=== PATIENT | female | born 1955 | race African-American/Black ===

== ENCOUNTER 2023-02-26 12:30 | Inpatient (IN) | payer MEDICARE, OTHER ==
[~2023-02-26] VITALS: Ht 160 cm; Wt 60.8 kg
[2023-02-26] MEDS ORDERED: ASPIRIN 81MG TABLET PO ONE (13:45)
[2023-02-26 14:16] LABS: CHLORIDE 105 mEq/L (98-107); INDEX HEMOLYSI 1 (1-3); INDEX ICTERIC 1 (1-4); INDEX LIPEMIC 1 (1-3); POTASSIUM 4.5 mEq/L (3.5-5.1); SODIUM 131 mEq/L (136-145)
[2023-02-26 14:22] LABS: BASOPHILS % 0.3 % (0.0-2.0); EOSINOPHILS % 0.2 % (0.0-5.0); HEMATOCRIT. 25.1 % (36.0-48.0); HEMOGLOBIN. 8.2 g/dL (12.0-16.0); LYMPHOCYTES % 27.5 % (20.0-50.0); MEAN CORPUSCULAR HEMOGLOBIN 26.3 pg (28.0-32.0); MEAN CORPUSCULAR HGB CONC 32.6 g/dL (31.0-37.0); MEAN CORPUSCULAR VOLUME 80.9 fL (81.0-99.0); MEAN PLATELET VOLUME 8.1 fl (7.4-10.4); MONOCYTES % 7.2 % (2.0-8.0); NEUTROPHILS % 64.8 % (40.0-76.0); PLATELET 214 x1000/uL (130-400); RED CELL DISTRIBUTION WIDTH 17.3 % (11.6-14.6); WHITE BLOOD COUNT 5.2 x1000/uL (4.5-11.0)
[2023-02-26 14:27] LABS: D-DIMER 7.26 mg/L FEU (<0.50); PROTHROMBIN TIME 11.2 sec (9.6-11.0)
[2023-02-26 14:28] LABS: ALANINE AMINOTRANSFERASE 13 IU/L (13-61); ALBUMIN 2.2 g/dL (3.4-5.0); ASPARTATE AMINOTRANSFERASE 29 IU/L (15-37); BILIRUBIN TOTAL 0.3 mg/dL (0.1-1.0); CALCIUM 8.8 mg/dL (8.5-10.1); CARBON DIOXIDE 23 mEq/L (21-32); CREATININE 2.2 mg/dL (0.6-1.3); NT PRO B-TYPE NATRIURETIC PEP 298 pg/mL (5-125); PROTEIN TOTAL 10.5 g/dL (6.0-8.3); TROPONIN I HIGH SENSITIVITY 7 ng/L (<54); UREA NITROGEN BLOOD 28 mg/dL (7-21)
[2023-02-26 15:19] LABS: GLUCOSE 100 mg/dL (70-105)
[2023-02-26 16:04] LABS: TROPONIN I HIGH SENSITIVITY 7 ng/L (<54)
[2023-02-26 22:40] LABS: CLARITY URINE CLEAR (CLEAR); COLOR URINE YELLOW (YELLOW); GLUCOSE URINE NEGATIVE (NEGATIVE); KETONES URINE NEGATIVE (NEGATIVE); LEUKOCYTE ESTERASE URINE NEGATIVE (NEGATIVE); NITRITE URINE NEGATIVE (NEGATIVE); OCCULT BLOOD URINE TRACE (NEGATIVE); PH URINE 5.5 (4.5-8.0); PROTEIN URINE 1+ (NEGATIVE); SPECIFIC GRAVITY URINE 1.019 (1.005-1.030); UROBILINOGEN URINE 0.2 E.U./dL (0.2-1.0)
[2023-02-26 22:43] LABS: YEAST URINE NONE SEEN
[2023-02-26] MEDS ORDERED: ALBUTEROL (0.083%) 2.5MG/3ML NEB HHN STA (22:50)
[2023-02-26] MEDS ORDERED: IPRATROPIUM BROMIDE (0.02%) 0.5MG/2.5ML NEB HHN STA (22:50)
[2023-02-26 22:57] LABS: BACTERIA URINE 1+; RBC URINE 0-2 /hpf (0-2); SQUAMOUS EPITHELIAL CELL URINE FEW /lpf (RARE/1+); WBC URINE 0-2 /hpf (0-2)
[2023-02-26 23:18] VITALS: PULSE 80; RESP 16
[2023-02-27] VITALS (7 sets, daily range): BP systolic 127–150; BP diastolic 73–81; PULSE 94–117; RESP 18–24; TEMP 96.8–97.9; O2SAT 98
[2023-02-27] MEDS ORDERED: ONDANSETRON 4MG ODT PO PRN (05:30)
[2023-02-27] MEDS ORDERED: HYDROCODONE/ACETAMINOPHEN 5/325MG TABLET PO PRN (05:30)
[2023-02-27] MEDS: PANTOPRAZOLE 40MG DR TABLET PO SCH (06:47)
[2023-02-27] MEDS ORDERED: NALOXONE HCL 0.4MG/ML VIAL IV PRN (08:15)
[2023-02-27] MEDS: AMLODIPINE 5MG TABLET PO SCH (08:50)
[2023-02-27] MEDS ORDERED: FUROSEMIDE 40MG/4ML VIAL IVP NR (09:30)
[2023-02-27 09:34] LABS: BG CARBOXYHEMOGLOBIN 0.3 % (0.5-1.5); BG DEOXYHEMOGLOBIN 4.2 % (0.0-5.0); BG FRACTION INSPIRED OXYGEN 26; BG HCO3 ACT 23.7 mmol/L (22.0-26.0); BG METHEMOGLOBIN 0.1 % (0.0-1.5); BG OXYGEN SATURATION 95.8 % (92.0-98.5); BG OXYHEMOGLOBIN 95.4 % (94.0-97.0); BG PCO2 39.4 mmHg (35.0-45.0); BG PH 7.397 (7.350-7.450); BG PO2 86.4 mmHg (75.0-100.0); BG SAMPLE SITE RIGHT RADIAL; BG VENT MODE NASAL CANNULA
[2023-02-27] MEDS ORDERED: ACETAMINOPHEN 325MG TABLET PO PRN (10:15)
[2023-02-27] MEDS ORDERED: IPRATROPIUM/ALBUTEROL 0.5-3(2.5)MG/3ML NEB HHN PRN (10:15)
[2023-02-27] MEDS ORDERED: DOCUSATE SODIUM 100MG CAPSULE PO PRN (10:15)
[2023-02-27 10:18] LABS: BASOPHILS % 0.4 % (0.0-2.0); DIFFERENTIAL COMMENT 0; EOSINOPHILS % 0.8 % (0.0-5.0); HEMATOCRIT. 27.1 % (36.0-48.0); HEMOGLOBIN. 9.1 g/dL (12.0-16.0); LYMPHOCYTES % 24.5 % (20.0-50.0); MEAN CORPUSCULAR HGB CONC 33.6 g/dL (31.0-37.0); MEAN CORPUSCULAR VOLUME 80.2 fL (81.0-99.0); MEAN PLATELET VOLUME 7.9 fl (7.4-10.4); MONOCYTES % 6.6 % (2.0-8.0); NEUTROPHILS % 67.7 % (40.0-76.0); PLATELET 218 x1000/uL (130-400); RED BLOOD CELL COUNT 3.37 mill/uL (4.2-5.4); RED CELL DISTRIBUTION WIDTH 17.5 % (11.6-14.6); WHITE BLOOD COUNT 4.5 x1000/uL (4.5-11.0)
[2023-02-27] MEDS: ASPIRIN 81MG TABLET PO SCH (10:54)
[2023-02-27] MEDS: METHYLPREDNISOLONE SOD SUCC 40MG VIAL IV SCH ×2 (10:55→17:16)
[2023-02-27 12:17] LABS: POTASSIUM 3.7 mEq/L (3.5-5.1)
[2023-02-27 12:32] LABS: CALCIUM 9.1 mg/dL (8.5-10.1); CREATININE 2.2 mg/dL (0.6-1.3); T4 FREE 1.22 ng/dL (0.76-1.46); THYROID STIMULATING HORMONE 1.6 uIU/mL (0.36-3.74)
[2023-02-27 12:54] LABS: HEPATITIS B SURFACE ANTIGEN NEGATIVE
[2023-02-27 13:26] LABS: HEPATITIS C VIR.AB 0.35 INDEXVAL (0.00-0.80)
[2023-02-27] MEDS ORDERED: AMLO10TA80 PO (13:40)
[2023-02-27] MEDS ORDERED: METO100T16 PO (13:40)
[2023-02-27] MEDS ORDERED: CLON0.3T PO (13:40)
[2023-02-27] MEDS ORDERED: SODIUM CHLORIDE 0.9% 250 ML IV ONE (15:30)
[2023-02-27] MEDS: SODIUM CHLORIDE 0.45% 1,000 ML IV SCH (20:33)
[2023-02-27] MEDS: IPRATROPIUM/ALBUTEROL 0.5-3(2.5)MG/3ML NEB HHN SCH (21:44)
[2023-02-27 22:20] LABS: INDEX HEMOLYSI 1 (1-3)
[2023-02-27 22:32] LABS: CREATINE KINASE 49 IU/L (26-192); CREATINE KINASE MB FRACTION < 1.0 ng/mL (0.5-3.6); TROPONIN I HIGH SENSITIVITY 5 ng/L (<54)
[2023-02-27] MEDS: DILTIAZEM HCL 30MG TABLET PO SCH (22:48)
[2023-02-27 23:51] LABS: INDEX HEMOLYSI 1 (1-3)
[2023-02-27 23:58] LABS: CREATINE KINASE 48 IU/L (26-192); CREATINE KINASE MB FRACTION < 1.0 ng/mL (0.5-3.6); TROPONIN I HIGH SENSITIVITY 5 ng/L (<54)
[2023-02-28] VITALS (12 sets, daily range): BP systolic 141–158; BP diastolic 78–91; PULSE 101–127; RESP 13–30; TEMP 97–98.8; O2SAT 97–99
[2023-02-28] MEDS: IPRATROPIUM/ALBUTEROL 0.5-3(2.5)MG/3ML NEB HHN SCH ×6 (01:26→22:07)
[2023-02-28] MEDS: DILTIAZEM HCL 30MG TABLET PO SCH ×3 (05:17→22:47)
[2023-02-28] MEDS: METHYLPREDNISOLONE SOD SUCC 40MG VIAL IV SCH ×2 (06:26→18:07)
[2023-02-28] MEDS: PANTOPRAZOLE 40MG DR TABLET PO SCH (06:26)
[2023-02-28 07:26] LABS: BASOPHILS % 0.3 % (0.0-2.0); DIFFERENTIAL COMMENT 0; EOSINOPHILS % 0.1 % (0.0-5.0); HEMATOCRIT. 26.5 % (36.0-48.0); HEMOGLOBIN. 9.2 g/dL (12.0-16.0); LYMPHOCYTES % 19.6 % (20.0-50.0); MEAN CORPUSCULAR HEMOGLOBIN 27.5 pg (28.0-32.0); MEAN CORPUSCULAR HGB CONC 34.5 g/dL (31.0-37.0); MEAN CORPUSCULAR VOLUME 79.8 fL (81.0-99.0); MEAN PLATELET VOLUME 8.5 fl (7.4-10.4); MONOCYTES % 3.3 % (2.0-8.0); NEUTROPHILS % 76.7 % (40.0-76.0); PLATELET 244 x1000/uL (130-400); RED BLOOD CELL COUNT 3.32 mill/uL (4.2-5.4); RED CELL DISTRIBUTION WIDTH 17.9 % (11.6-14.6); WHITE BLOOD COUNT 4.3 x1000/uL (4.5-11.0)
[2023-02-28 07:27] LABS: POTASSIUM 3.9 mEq/L (3.5-5.1)
[2023-02-28 07:33] LABS: CALCIUM 8.5 mg/dL (8.5-10.1); CREATININE 2.6 mg/dL (0.6-1.3)
[2023-02-28] MEDS: ASPIRIN 81MG TABLET PO SCH (08:54)
[2023-02-28] MEDS: ENOXAPARIN 30MG/0.3ML SYR SUBCUT SCH (08:54)
[2023-02-28] MEDS: AMLODIPINE 5MG TABLET PO SCH (08:54)
[2023-02-28 09:40] LABS: FOLIC ACID (FOLATE) SERUM 15.8 ng/mL (>5.38)
[2023-02-28] MEDS: HYDRALAZINE HCL 25MG TABLET PO SCH ×3 (11:14→22:47)
[2023-02-28] MEDS: SODIUM CHLORIDE 0.45% 1,000 ML IV SCH (15:24)
[2023-02-28] MEDS: AZITHROMYCIN 500 MG in DEXT 5% WATER 250 ML IV SCH (15:30)
[2023-02-28] MEDS ORDERED: LACTULOSE 20G/30ML UDC PO PRN (18:45)
[2023-02-28] MEDS: GUAIFENESIN/CODEINE 200-20MG/10ML UDC PO PRN (23:24)
[2023-03-01] VITALS (11 sets, daily range): BP systolic 128–152; BP diastolic 70–87; PULSE 94–121; RESP 17–35; TEMP 97.8–98.4; O2SAT 93–100
[2023-03-01] MEDS: IPRATROPIUM/ALBUTEROL 0.5-3(2.5)MG/3ML NEB HHN SCH ×3 (02:08→09:12)
[2023-03-01 06:35] LABS: BASOPHILS % 0.1 % (0.0-2.0); EOSINOPHILS % 0.1 % (0.0-5.0); HEMATOCRIT. 28.4 % (36.0-48.0); HEMOGLOBIN. 9.5 g/dL (12.0-16.0); LYMPHOCYTES % 11.7 % (20.0-50.0); MEAN CORPUSCULAR HGB CONC 33.4 g/dL (31.0-37.0); MEAN CORPUSCULAR VOLUME 80.8 fL (81.0-99.0); MEAN PLATELET VOLUME 8.4 fl (7.4-10.4); MONOCYTES % 4.2 % (2.0-8.0); NEUTROPHILS % 83.9 % (40.0-76.0); PLATELET 264 x1000/uL (130-400); RED BLOOD CELL COUNT 3.51 mill/uL (4.2-5.4); RED CELL DISTRIBUTION WIDTH 17.9 % (11.6-14.6); WHITE BLOOD COUNT 6.9 x1000/uL (4.5-11.0)
[2023-03-01] MEDS: DILTIAZEM HCL 30MG TABLET PO SCH ×3 (06:38→22:12)
[2023-03-01] MEDS: HYDRALAZINE HCL 25MG TABLET PO SCH ×3 (06:39→22:13)
[2023-03-01] MEDS: METHYLPREDNISOLONE SOD SUCC 40MG VIAL IV SCH ×2 (06:39→17:25)
[2023-03-01] MEDS: PANTOPRAZOLE 40MG DR TABLET PO SCH (06:39)
[2023-03-01 07:17] LABS: CHLORIDE 108 mEq/L (98-107); INDEX HEMOLYSI 1 (1-3); INDEX ICTERIC 1 (1-4); INDEX LIPEMIC 1 (1-3); POTASSIUM 3.9 mEq/L (3.5-5.1); SODIUM 134 mEq/L (136-145)
[2023-03-01 07:23] LABS: ALANINE AMINOTRANSFERASE 18 IU/L (13-61); ALBUMIN 2.5 g/dL (3.4-5.0); ASPARTATE AMINOTRANSFERASE 33 IU/L (15-37); BILIRUBIN TOTAL 0.2 mg/dL (0.1-1.0); CARBON DIOXIDE 23 mEq/L (21-32); CREATININE 2.7 mg/dL (0.6-1.3); GLUCOSE 125 mg/dL (70-105); PROTEIN TOTAL 11.1 g/dL (6.0-8.3); UREA NITROGEN BLOOD 40 mg/dL (7-21)
[2023-03-01 08:08] LABS: ANTI-NUCLEAR ANTIBODIES DIRECT Negative (Negative); COMPLEMENT C3 126 mg/dL (82-167); COMPLEMENT C4 42 mg/dL (12-38)
[2023-03-01] MEDS: ENOXAPARIN 30MG/0.3ML SYR SUBCUT SCH (08:59)
[2023-03-01] MEDS: ASPIRIN 81MG TABLET PO SCH (08:59)
[2023-03-01] MEDS: AMLODIPINE 5MG TABLET PO SCH (09:00)
[2023-03-01] MEDS: GUAIFENESIN/CODEINE 200-20MG/10ML UDC PO PRN ×3 (09:03→22:22)
[2023-03-01] MEDS: SODIUM CHLORIDE 0.45% 1,000 ML IV SCH (11:26)
[2023-03-01] MEDS: IPRATROPIUM BROMIDE (0.02%) 0.5MG/2.5ML NEB HHN SCH ×3 (12:00→21:14)
[2023-03-01] MEDS: AZITHROMYCIN 500 MG in DEXT 5% WATER 250 ML IV SCH (15:55)
[2023-03-02] VITALS (9 sets, daily range): BP systolic 141–156; BP diastolic 75–77; PULSE 101–126; RESP 18–25; TEMP 96.7–98.3; O2SAT 95–97
[2023-03-02] MEDS: IPRATROPIUM BROMIDE (0.02%) 0.5MG/2.5ML NEB HHN SCH ×5 (01:15→16:47)
[2023-03-02] MEDS: PANTOPRAZOLE 40MG DR TABLET PO SCH (06:09)
[2023-03-02] MEDS: HYDRALAZINE HCL 25MG TABLET PO SCH ×3 (06:10→21:33)
[2023-03-02] MEDS: METHYLPREDNISOLONE SOD SUCC 40MG VIAL IV SCH ×2 (06:10→17:33)
[2023-03-02] MEDS: DILTIAZEM HCL 30MG TABLET PO SCH (06:11)
[2023-03-02] MEDS: SODIUM CHLORIDE 0.45% 1,000 ML IV SCH (06:22)
[2023-03-02] MEDS: ASPIRIN 81MG TABLET PO SCH (07:54)
[2023-03-02] MEDS: ENOXAPARIN 30MG/0.3ML SYR SUBCUT SCH (07:54)
[2023-03-02] MEDS: AMLODIPINE 5MG TABLET PO SCH (07:54)
[2023-03-02] MEDS ORDERED: AMLODIPINE 5MG TABLET PO SCH (09:30)
[2023-03-02 10:48] LABS: BASOPHILS % 0.5 % (0.0-2.0); EOSINOPHILS % 0.1 % (0.0-5.0); HEMOGLOBIN. 9.4 g/dL (12.0-16.0); LYMPHOCYTES % 7.5 % (20.0-50.0); MEAN CORPUSCULAR HEMOGLOBIN 25.9 pg (28.0-32.0); MEAN CORPUSCULAR HGB CONC 31.4 g/dL (31.0-37.0); MEAN CORPUSCULAR VOLUME 82.6 fL (81.0-99.0); MEAN PLATELET VOLUME 8.4 fl (7.4-10.4); MONOCYTES % 4.7 % (2.0-8.0); NEUTROPHILS % 87.2 % (40.0-76.0); PLATELET 293 x1000/uL (130-400); RED BLOOD CELL COUNT 3.63 mill/uL (4.2-5.4); RED CELL DISTRIBUTION WIDTH 18.2 % (11.6-14.6); WHITE BLOOD COUNT 8.5 x1000/uL (4.5-11.0)
[2023-03-02 11:50] LABS: POTASSIUM 4.2 mEq/L (3.5-5.1)
[2023-03-02 11:59] LABS: CALCIUM 9.2 mg/dL (8.5-10.1); CREATININE 2.7 mg/dL (0.6-1.3)
[2023-03-02] MEDS: DILTIAZEM HCL 60MG TABLET PO SCH ×2 (15:37→21:33)
[2023-03-02] MEDS: GUAIFENESIN/CODEINE 200-20MG/10ML UDC PO PRN ×2 (15:41→20:07)
[2023-03-02] MEDS: AZITHROMYCIN 500 MG in DEXT 5% WATER 250 ML IV SCH (16:06)
[2023-03-02] MEDS: METOPROLOL TARTRATE 25MG TABLET PO SCH (21:33)
[2023-03-03] VITALS (10 sets, daily range): BP systolic 125–143; BP diastolic 64–77; PULSE 70–94; RESP 16–22; TEMP 96.9–98; O2SAT 95–99
[2023-03-03] MEDS: GUAIFENESIN/CODEINE 200-20MG/10ML UDC PO PRN ×2 (02:53→22:09)
[2023-03-03] MEDS: SODIUM CHLORIDE 0.45% 1,000 ML IV SCH (03:15)
[2023-03-03 05:51] LABS: CALCIUM 9.3 mg/dL (8.5-10.1); CREATININE 2.6 mg/dL (0.6-1.3); POTASSIUM 4.2 mEq/L (3.5-5.1)
[2023-03-03 05:52] LABS: BASOPHILS % 0.5 % (0.0-2.0); DIFFERENTIAL COMMENT 0; EOSINOPHILS % 0.1 % (0.0-5.0); HEMATOCRIT. 29.1 % (36.0-48.0); HEMOGLOBIN. 9.6 g/dL (12.0-16.0); LYMPHOCYTES % 10.1 % (20.0-50.0); MEAN CORPUSCULAR HEMOGLOBIN 26.7 pg (28.0-32.0); MEAN CORPUSCULAR HGB CONC 32.9 g/dL (31.0-37.0); MEAN CORPUSCULAR VOLUME 81.2 fL (81.0-99.0); MEAN PLATELET VOLUME 8.5 fl (7.4-10.4); NEUTROPHILS % 85.3 % (40.0-76.0); PLATELET 280 x1000/uL (130-400); RED BLOOD CELL COUNT 3.58 mill/uL (4.2-5.4); RED CELL DISTRIBUTION WIDTH 18.2 % (11.6-14.6); WHITE BLOOD COUNT 6.9 x1000/uL (4.5-11.0)
[2023-03-03] MEDS: HYDRALAZINE HCL 25MG TABLET PO SCH ×3 (06:28→22:05)
[2023-03-03] MEDS: METHYLPREDNISOLONE SOD SUCC 40MG VIAL IV SCH ×2 (06:28→17:50)
[2023-03-03] MEDS: PANTOPRAZOLE 40MG DR TABLET PO SCH (06:28)
[2023-03-03] MEDS: DILTIAZEM HCL 60MG TABLET PO SCH ×3 (06:29→17:43)
[2023-03-03] MEDS: IPRATROPIUM BROMIDE (0.02%) 0.5MG/2.5ML NEB HHN SCH ×4 (08:06→22:03)
[2023-03-03] MEDS: ASPIRIN 81MG TABLET PO SCH (08:13)
[2023-03-03] MEDS: ENOXAPARIN 30MG/0.3ML SYR SUBCUT SCH (08:13)
[2023-03-03] MEDS: METOPROLOL TARTRATE 25MG TABLET PO SCH ×2 (08:13→22:05)
[2023-03-03 15:42] LABS: BG BASE EXCESS -4.7 mmol/L (-2.0-2.0); BG CARBOXYHEMOGLOBIN 0.3 % (0.5-1.5); BG DEOXYHEMOGLOBIN 10.1 % (0.0-5.0); BG FRACTION INSPIRED OXYGEN 21; BG HCO3 ACT 20.1 mmol/L (22.0-26.0); BG METHEMOGLOBIN 0.3 % (0.0-1.5); BG OXYGEN SATURATION 89.8 % (92.0-98.5); BG OXYHEMOGLOBIN 89.3 % (94.0-97.0); BG PCO2 36.4 mmHg (35.0-45.0); BG PH 7.361 (7.350-7.450); BG PO2 59.5 mmHg (75.0-100.0); BG SAMPLE SITE LEFT RADIAL; BG TOTAL HEMOGLOBIN 10.2 g/dL (12.0-18.0); BG VENT MODE ROOM AIR
[2023-03-03] MEDS: AZITHROMYCIN 500 MG in DEXT 5% WATER 250 ML IV SCH (16:31)
[2023-03-04] VITALS (9 sets, daily range): BP systolic 134–145; BP diastolic 68–81; PULSE 79–103; RESP 13–25; TEMP 97.6–98.3; O2SAT 98
[2023-03-04] MEDS: DILTIAZEM HCL 60MG TABLET PO SCH ×3 (00:57→13:02)
[2023-03-04] MEDS: IPRATROPIUM BROMIDE (0.02%) 0.5MG/2.5ML NEB HHN SCH ×4 (01:44→13:46)
[2023-03-04] MEDS: GUAIFENESIN/CODEINE 200-20MG/10ML UDC PO PRN (06:25)
[2023-03-04] MEDS: PANTOPRAZOLE 40MG DR TABLET PO SCH (06:26)
[2023-03-04] MEDS: HYDRALAZINE HCL 25MG TABLET PO SCH ×2 (06:26→16:46)
[2023-03-04] MEDS: METHYLPREDNISOLONE SOD SUCC 40MG VIAL IV SCH (06:26)
[2023-03-04] MEDS: ASPIRIN 81MG TABLET PO SCH (09:24)
[2023-03-04] MEDS: METOPROLOL TARTRATE 25MG TABLET PO SCH (09:24)
[2023-03-04] MEDS: ENOXAPARIN 30MG/0.3ML SYR SUBCUT SCH (09:25)
[2023-03-04 11:57] LABS: POTASSIUM 4.4 mEq/L (3.5-5.1)
[2023-03-04 12:02] LABS: CREATININE 2.4 mg/dL (0.6-1.3)
[2023-03-04] MEDS ORDERED: AZITHROMYCIN 500 MG TABLET PO SCH (16:00)
== END 2023-03-04 18:40 | disposition home or self-care (01) | DRG 133 ==
LOC: ER 12:30 → 3WST 18:55 → EDBEDREQTM 19:46 → EDBEDREQ 19:46 → EDBEDREQSVC 19:46 → 3WST 02-27 04:48
PROVIDERS: ADMIT Internal Medicine; ATTEND Internal Medicine
DX: J96.01 Acute respiratory failure with hypoxia (principal); N17.9 Acute kidney failure, unspecified; J18.9 Pneumonia, unspecified organism; I27.20 Pulmonary hypertension, unspecified; J84.10 Pulmonary fibrosis, unspecified; E87.1 Hypo-osmolality and hyponatremia; N18.9 Chronic kidney disease, unspecified; I12.9 Hypertensive chronic kidney disease with stage 1 through stage 4 chronic kidney disease, or unspecified chronic kidney disease; E78.5 Hyperlipidemia, unspecified; D50.9 Iron deficiency anemia, unspecified; I07.1 Rheumatic tricuspid insufficiency
CPT/HCPCS: 36415; 36600; 71045; 71275; 76770; 80048; 80053; 80061; 81003; 82375; 82550; 82553; 82607; 82728; 82746; 82805; 83036; 83540; 83550; 83880; 84439; 84443; 84484; 85025; 85379; 86038; 86160; 86803; 87340; 87426; 87804; 93005; 93306; 94618; 94640; 97162; 99285; C9803; J0456; J1650; J1940; J2920; J7060

== ENCOUNTER 2023-09-05 19:08 | Inpatient (IN) | payer MEDICARE, MEDICAID ==
[~2023-09-05] VITALS: Ht 170.2 cm; Wt 69.5 kg
[~2023-09-05 19:08] MED LIST: AMLO10TA80 PO; CLON0.3T PO; METO100T16 PO
[2023-09-05] MEDS ORDERED: FUROSEMIDE 40MG/4ML VIAL IVP ONE (19:45)
[2023-09-05] MEDS ORDERED: NITROGLYCERIN 50MG PREMIX 250 ML IV ONE (19:45)
[2023-09-05 20:32] LABS: BG CARBOXYHEMOGLOBIN 0.3 % (0.5-1.5); BG DEOXYHEMOGLOBIN 3.3 % (0.0-5.0); BG FRACTION INSPIRED OXYGEN 26; BG HCO3 ACT 23.9 mmol/L (22.0-26.0); BG OXYGEN SATURATION 96.7 % (92.0-98.5); BG OXYHEMOGLOBIN 95.4 % (94.0-97.0); BG PCO2 40.8 mmHg (35.0-45.0); BG PH 7.386 (7.350-7.450); BG PO2 96.6 mmHg (75.0-100.0); BG SAMPLE SITE RIGHT RADIAL; BG TOTAL HEMOGLOBIN 11.4 g/dL (12.0-18.0); BG VENT MODE NASAL CANNULA
[2023-09-05 21:12] LABS: BASOPHILS % 0.3 % (0.0-2.0); HEMATOCRIT. 30.7 % (36.0-48.0); HEMOGLOBIN. 10.1 g/dL (12.0-16.0); LYMPHOCYTES % 30.7 % (20.0-50.0); MEAN CORPUSCULAR HEMOGLOBIN 26.8 pg (28.0-32.0); MEAN CORPUSCULAR HGB CONC 32.7 g/dL (31.0-37.0); MEAN CORPUSCULAR VOLUME 81.7 fL (81.0-99.0); MEAN PLATELET VOLUME 8.6 fl (7.4-10.4); MONOCYTES % 3.6 % (2.0-8.0); NEUTROPHILS % 65.4 % (40.0-76.0); PLATELET 167 x1000/uL (130-400); RED BLOOD CELL COUNT 3.76 mill/uL (4.2-5.4); RED CELL DISTRIBUTION WIDTH 20.8 % (11.6-14.6)
[2023-09-05] MEDS: IPRATROPIUM BROMIDE (0.02%) 0.5MG/2.5ML NEB HHN STA (21:22)
[2023-09-05] MEDS: ALBUTEROL (0.083%) 2.5MG/3ML NEB HHN SCH (21:22)
[2023-09-05 21:23] VITALS: PULSE 71; RESP 18; O2SAT 99
[2023-09-05 21:24] LABS: PARTIAL THROMBOPLASTIN TIME 26.1 sec (23.4-31.0); PROTHROMBIN TIME 10.8 sec (9.6-11.0)
[2023-09-05 21:28] LABS: ALANINE AMINOTRANSFERASE 9 IU/L (10-49); ALBUMIN 3.7 g/dL (3.2-4.8); ASPARTATE AMINOTRANSFERASE 20 IU/L (<34); BILIRUBIN TOTAL 0.4 mg/dL (0.1-1.0); CARBON DIOXIDE 25 mEq/L (21-32); CHLORIDE 106 mEq/L (98-107); GLUCOSE 143 mg/dL (70-105); PROTEIN TOTAL 9.3 g/dL (6.0-8.3); SODIUM 138 mEq/L (136-145); UREA NITROGEN BLOOD 32 mg/dL (9-23)
[2023-09-05 21:29] LABS: TROPONIN I HIGH SENSITIVITY < 4 ng/L (3.0-34)
[2023-09-05] MEDS: METHYLPREDNISOLONE SOD SUCC 125MG/2ML (ACT-O-VIAL) IV STA (22:28)
[2023-09-05] MEDS: PIPERACILLIN/TAZO 3.375G/50ML 50 ML IV SCH (22:28)
[2023-09-05] MEDS: FUROSEMIDE 40MG/4ML VIAL IVP NR (22:29)
[2023-09-05 23:18] LABS: TROPONIN I HIGH SENSITIVITY < 4 ng/L (3.0-34)
[2023-09-05 23:38] VITALS: PULSE 75; RESP 18; O2SAT 99
[2023-09-05] MEDS: VANCOMYCIN 1.5GM/250ML 250 ML IV SCH (23:50)
[2023-09-06] VITALS (11 sets, daily range): BP systolic 134–169; BP diastolic 82–96; PULSE 70–88; RESP 18–20; TEMP 96.6–98.9; O2SAT 90–99
[2023-09-06] MEDS ORDERED: ONDANSETRON HCL 4MG/2ML INJ IV PRN (02:00)
[2023-09-06] MEDS ORDERED: IPRATROPIUM/ALBUTEROL 0.5-3(2.5)MG/3ML NEB HHN PRN (02:00)
[2023-09-06] MEDS: METHYLPREDNISOLONE SOD SUCC 40MG/ML (ACT-O-VIAL) IV SCH (05:23)
[2023-09-06] MEDS: SODIUM CHLORIDE 0.9% INJ 3ML FLUSH IVF SCH (05:23)
[2023-09-06] MEDS: CLONIDINE 0.3MG TABLET PO SCH (05:24)
[2023-09-06] MEDS: IPRATROPIUM/ALBUTEROL 0.5-3(2.5)MG/3ML NEB HHN SCH (08:27)
[2023-09-06] MEDS: AMLODIPINE 10MG TABLET PO SCH (08:37)
[2023-09-06] MEDS: LORATADINE 10MG TABLET PO SCH (08:37)
[2023-09-06] MEDS: METOPROLOL TARTRATE 100MG TABLET PO SCH (08:37)
[2023-09-06] MEDS: ENOXAPARIN 40MG/0.4ML SYR SUBCUT SCH (08:37)
[2023-09-06] MEDS: MAGNESIUM/ALUMINUM HYDROXIDE/SIMETHICONE 30ML UDC PO PRN (11:45)
[2023-09-06] MEDS: ACETAMINOPHEN 325MG TABLET PO PRN (11:46)
[2023-09-06] MEDS: GUAIFENESIN 200MG/10ML SUGAR FREE UDC PO PRN (21:08)
[2023-09-07] VITALS (12 sets, daily range): BP systolic 123–167; BP diastolic 62–89; PULSE 72–89; RESP 13–20; TEMP 97–98.3; O2SAT 94–96
[2023-09-07] MEDS: CLONIDINE 0.1MG TABLET PO PRN (08:10)
[2023-09-07] MEDS: IBUPROFEN 400MG TABLET PO PRN (21:11)
[2023-09-07] MEDS: ZOLPIDEM TARTRATE 5MG TABLET PO PRN (22:26)
[2023-09-08] VITALS (10 sets, daily range): BP systolic 150–162; BP diastolic 51–88; PULSE 69–89; RESP 18–20; TEMP 97.7–99.3; O2SAT 93–96
[2023-09-08] MEDS: DIPHENHYDRAMINE 50MG/ML VIAL IV PRN (04:28)
[2023-09-08] MEDS: ENOXAPARIN 30MG/0.3ML SYR SUBCUT SCH (09:09)
[2023-09-08] MEDS: PNEUMOCOCCAL 23-VAL P-SAC VAC 0.5 ML IM ONE (14:07)
[2023-09-08 16:44] LABS: TROPONIN I HIGH SENSITIVITY < 4 ng/L (3.0-34)
[2023-09-09 00:40] VITALS: PULSE 77; RESP 18
[2023-09-09 04:30] VITALS: PULSE 72; RESP 18
[2023-09-09 07:33] LABS: TROPONIN I HIGH SENSITIVITY < 4 ng/L (3.0-34)
[2023-09-09 08:16] VITALS: PULSE 82; RESP 18
[2023-09-09 14:18] VITALS: PULSE 80; RESP 18
[2023-09-09 16:00] VITALS: BP 159/92; PULSE 83; RESP 18; TEMP 98.2
== END 2023-09-09 19:00 | disposition home or self-care (01) | DRG 194 ==
LOC: ER 19:08 → 7WST 09-06 → EDBEDREQSVC 09-06 00:27 → EDBEDREQTM 09-06 00:27 → EDBEDREQ 09-06 00:27 → EDBEDREQDT 09-06 00:27
PROVIDERS: ADMIT Internal Medicine; ATTEND Internal Medicine
DX: I11.0 Hypertensive heart disease with heart failure (principal); J96.21 Acute and chronic respiratory failure with hypoxia; N17.9 Acute kidney failure, unspecified; I50.33 Acute on chronic diastolic (congestive) heart failure; J84.9 Interstitial pulmonary disease, unspecified; D64.9 Anemia, unspecified; Z79.51 Long term (current) use of inhaled steroids; Z79.899 Other long term (current) drug therapy
CPT/HCPCS: 36415; 36600; 71045; 78580; 80053; 82375; 82805; 83605; 83880; 84145; 84484; 85025; 85379; 86850; 86900; 90732; 93005; 93306; 93970; 94640; 99291; A6261; J1200; J1650; J1940; J2543; J2920; J2930; J3370; J3490